=== PATIENT | female | born 1940 | race Caucasian/White ===

== ENCOUNTER 2023-09-18 01:55 | Day surgery (SDC) | payer MEDICARE, SELFPAY ==
[2023-09-17 12:03] VITALS: BMI 21.3
[2023-09-18 08:44] VITALS: BP 143/70; PULSE 65; RESP 23; TEMP 37; O2SAT 98; BMI 21.7
--- NOTE | 2023-09-18 10:42 | WPDHPUPDATE1 ---
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 She had a loop recorder implanted several years ago for evaluation of a cryptogenic stroke which has never shown any atrial arrhythmias in the patient would like the device explanted. Reached end of life a couple of years ago. She also has a history of carotid disease status post right carotid stent in 2017, hypertension, dyslipidemia, orthostasis and low blood pressure, and vertigo. She has a history of nephrectomy History and Physical has been reviewed, including an updated exam of the patient. There are NO changes in the patient's condition. She is feeling well today, NPO, with no signs or symptoms of infection. Risks, benefits, and alternatives have been discussed and questions answered. Patient agrees to proceed with procedure.
--- NOTE | 2023-09-18 10:44 | WPDMODSED ---
Moderate Sedation Note-Pt Data Patient Data Diagnosis: Loop recorder at end of life Present Complaint: Evi Rain 83-year-old female with history of acute? 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 She had a loop recorder implanted several years ago for evaluation of a cryptogenic stroke which has never shown any atrial arrhythmias. The patient would like the device explanted.? It reached end of life a couple of years ago.? She also has a history of? carotid disease status post right carotid stent in 2017, hypertension, dyslipidemia, orthostasis and low blood pressure, and vertigo.? She has a history of nephrectomy. She is feeling well today with no signs or symptoms of infection and has been NPO. Procedure to be performed/Plan: Loop recorder explant under local anesthesia, possible conscious sedation. Allergies Allergy/AdvReac Type Severity Reaction Status Date / Time amoxicillin Allergy Severe Anaphylaxis Verified 09/18/23 08:43 lisinopril Allergy Severe Unknown Verified 09/18/23 08:43 NSAIDS (Non-Steroidal AdvReac Severe Other Verified 09/18/23 08:43 Anti-Inflamma Home Medications Medication Instructions Recorded Confirmed Type Aspir-Low 81 mg PO DAILY 09/17/23 09/17/23 History alendronate 70 mg tablet 70 mg PO WEEKLY 09/17/23 09/17/23 History amlodipine 10 mg tablet 10 mg PO DAILY 09/17/23 09/17/23 History atorvastatin 20 mg tablet 20 mg PO DAILY 09/17/23 09/17/23 History biotin 5 mg capsule 5 mg PO DAILY 09/17/23 09/17/23 History calcium carbonate 250 mg calcium 250 mg PO DAILY 09/17/23 09/17/23 History (625 mg) tablet clobetasol 0.05 % topical cream 1 applic topical DAILY 09/17/23 09/17/23 History docusate sodium 100 mg tablet mg PO DAILY 09/17/23 History estradiol 0.01% (0.1 mg/gram) 0.01 appful vaginal DAILY 09/17/23 09/17/23 History vaginal cream meclizine 25 mg tablet 25 mg PO TID 09/17/23 09/17/23 History mirtazapine 15 mg tablet 15 mg PO HS 09/17/23 09/17/23 History multivit with minerals-iron 18 1 tablet PO DAILY 09/17/23 09/17/23 History mg-folic ac 400 mcg-vit K 25 mcg tablet (Adults Multivitamin) oxybutynin chloride 10 mg 10 mg PO HS 09/17/23 09/17/23 History tablet,extended release 24 hr pantoprazole 40 mg tablet,delayed 40 mg PO QAM 09/17/23 09/17/23 History release sertraline 100 mg tablet 100 mg PO DAILY 09/17/23 09/17/23 History trazodone 100 mg tablet 100 mg PO HS PRN Insomnia 09/17/23 09/17/23 History Sedation/Anesthesia: No previous sedation/anesthesia problems (including family history). 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 Jorge at [facility] Hypertension Monoclonal gammopathy Orthostasis PSVT (paroxysmal supraventricular tachycardia) Recurrent strokes acute embolic left the septal stroke in July 2016, old right occipital and right frontal lobe infarction per MRI Status post nephrectomy Thyroid disease Vertigo Vulva cancer Family History Family History Father Hypertension Family history of malignant neoplasm of cervix Patient's father is Colon cancer Malignant neoplasm of prostate Sibling Family history of coronary artery disease Patient's sister is Patient's brother is Mother Parkinsons disease Social History Social History Smoking status: Former smoker Tobacco type: cigarettes Second hand tobacco smoke exposure: No Smoking end date: 08/13/13 Alcohol intake: never Substance use: never Living arrangements: alone Spiritual care concerns: No
--- NOTE | 2023-09-18 11:31 | PM.OP ---
Procedure Note - Brief Procedure Note - Brief Date of procedure: 09/18/23 loop recorder at [facility] Procedure performed: conscious sedation Explant of [employer] loop recorder Surgeon: Babs Campbell MD Description of procedure: uneventful explanted Complications: No immediate complications Condition: Stable Disposition: Observation
--- NOTE | 2023-09-18 11:32 | P.OP_ITS ---
Procedure Note - Detailed Date of Procedure 09/18/23 Pre-op Diagnosis [employer] loop recorder at [facility] Post-op Diagnosis Other ( explant of loop recorder) Procedure Performed conscious sedation Explant of loop recorder Surgeon Babs Campbell MD Anesthesia Local ( with conscious sedation) Indications Evi Rain 83-year-old female with history of acute? 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 She had a loop recorder implanted several years ago for evaluation of a cryptogenic stroke which has never shown any atrial arrhythmias. The patient would like the device explanted.? ? It reached end of life a couple of years ago.? She also has a history of? carotid disease status post right carotid stent in 2017, hypertension, dyslipidemia, orthostasis and low blood pressure, and vertigo.? She has a history of nephrectomy.? She is feeling well today with no signs or symptoms of infection and has been NPO. Description of Procedure Conscious sedation: Assessment: The patient has no history of anesthesia problems. The patient's oropharynx is clear. The patient was deemed to be a good candidate for conscious sedation. The patient had continuous hemodynamic monitoring during the procedure. Start time: 11:17 a.m. Completion time: 11:30 a.m. Total conscious sedation time: 13 minutes Medications: Versed 1 mg, fentanyl 25 mcg IV push Trained observer: Lola Deleon RN Outcome: The patient tolerated the procedure well with no complications. After informed consent the patient was taken into the lab pack chemist. Patient requested and received conscious sedation. The left parasternal area was prepped and draped. Anesthesia was obtained using 1% lidocaine. A skin incision was made and carried down to the loop recorder with blunt and sharp dissection. The capsule was incised. The device was grasped with forceps and delivered from the pocket. The pocket was irrigated with sterile saline and vancomycin solution. Hemostasis was obtained with local compression. incision was closed with 2-0 Vicryl suture. A skin adhesive and sterile dressing were applied. The patient tolerated the procedure well. There were no complications. Blood loss was negligible. Estimated Blood Loss 2 (cc) Condition Stable Disposition Observation
[2023-09-18 11:45] VITALS: BP 132/63; PULSE 63; RESP 18; O2SAT 95
[2023-09-18 12:00] VITALS: BP 127/51; PULSE 62; RESP 16; O2SAT 94
[2023-09-18 12:15] VITALS: BP 131/61; PULSE 55; RESP 10; O2SAT 94
[2023-09-18 12:30] VITALS: BP 139/64; PULSE 54; RESP 16; O2SAT 97
== END 2023-09-18 13:00 | disposition home or self-care (01) ==
PROVIDERS: PCP Internal Medicine; Visit Provider Internal Medicine Cardiovascular Disease
PROC: (CPT 33286; principal; 2023-09-18 10:00)
DX: Z45.09 Encounter for adjustment and management of other cardiac device (principal); I10 Essential (primary) hypertension; E78.5 Hyperlipidemia, unspecified; K21.9 Gastro-esophageal reflux disease without esophagitis; I25.2 Old myocardial infarction; E07.9 Disorder of thyroid, unspecified; J30.2 Other seasonal allergic rhinitis; D47.2 Monoclonal gammopathy; Z79.82 Long term (current) use of aspirin; Z90.5 Acquired absence of kidney; Z95.818 Presence of other cardiac implants and grafts; Z87.891 Personal history of nicotine dependence; Z85.44 Personal history of malignant neoplasm of other female genital organs; Z86.79 Personal history of other diseases of the circulatory system; Z86.73 Personal history of transient ischemic attack (TIA), and cerebral infarction without residual deficits; Z80.0 Family history of malignant neoplasm of digestive organs; Z80.42 Family history of malignant neoplasm of prostate; Z80.51 Family history of malignant neoplasm of kidney; Z80.3 Family history of malignant neoplasm of breast; Z80.41 Family history of malignant neoplasm of ovary; Z80.49 Family history of malignant neoplasm of other genital organs
CPT/HCPCS: 33286; J2250; J3010; J3370; J7040

== ENCOUNTER 2023-10-22 14:12 | Outpatient (NON) | payer MEDICARE, SELFPAY | END 2023-10-22 14:13 | disposition home or self-care (01) | PROVIDERS: PCP Internal Medicine; Visit Provider Internal Medicine Cardiovascular Disease | DX: T81.49XA Infection following a procedure, other surgical site, initial encounter (principal); Y82.9 Unspecified medical devices associated with adverse incidents | CPT/HCPCS: 87070; 87075; 87147; 87181; 87205 ==